=== PATIENT | female | born 1965 | race Caucasian/White ===

== ENCOUNTER 2018-05-06 13:16 | Emergency (ER) | payer OTHER ==
[2018-05-06] MEDS: IBUPROFEN 600 MG TAB PO (14:32)
== END 2018-05-06 16:05 | disposition home or self-care (01) ==
LOC: FTE 13:16
DX: M79.644 Pain in right finger(s) (principal); M79.672 Pain in left foot
CPT/HCPCS: 73130; 73130-RT; 73630-LT; 99284-25